=== PATIENT | female | born 1980 | race American Indian/Alaskan Native ===

== ENCOUNTER 2020-04-10 08:38 | Emergency (ER) | payer OTHER, MEDICAID ==
[2020-04-10 11:05] VITALS: BP 137/89
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
== END 2020-04-10 11:19 | disposition home or self-care (01) ==
LOC: ED 08:38
DX: S40.012A Contusion of left shoulder, initial encounter (principal); M25.561 Pain in right knee; M25.562 Pain in left knee; V49.49XA Driver injured in collision with other motor vehicles in traffic accident, initial encounter; Y93.89 Activity, other specified; Y92.488 Other paved roadways as the place of occurrence of the external cause; Y99.8 Other external cause status
CPT/HCPCS: 99282